=== PATIENT | male | born 1995 | race Caucasian/White ===

== ENCOUNTER 2017-08-09 02:15 | Emergency (ER) | payer OTHER ==
[2017-08-09] MEDS ORDERED: Lidocaine 2% PF * 5 ML VIAL ONE (02:38)
[2017-08-09] MEDS ORDERED: LORazepam INJ* 2 MG/ML 1 ML VIAL IM ONE (02:59)
[2017-08-09] MEDS ORDERED: LORazepam INJ* 2 MG/ML 1 ML VIAL ONE (03:00)
[2017-08-09 03:38] VITALS: BP 130/87
--- NOTE | 2017-08-09 03:58 | ED ---
Lorraine Maurer Edward, scribed for Emily Gan MD on 08/09/17 at 0302 . Laceration/Wound HPI - HPI Summary HPI Summary: 21 y/o male presents to the ED c/o L index finger laceration s/p cut with hunting knife at around 00:30 earlier tonight. Symptoms not aggravated or alleviated by anything. Pt denies SI. - History of Current Complaint Stated Complaint: LEFT FINGER LAC Time Seen by Provider: 08/09/17 02:26 Hx Obtained From: Patient Onset/Duration: Sudden Onset, Still Present Pain Intensity: 0 Associated Signs & Symptoms: Negative - Allergy/Home Medications Allergies/Adverse Reactions: Allergies Allergy/AdvReac Type Severity Reaction Status Date / Time No Known Allergies Allergy Verified 05/23/16 14:41 PMH/Surg Hx/FS Hx/Imm Hx Previously Healthy: No Endocrine/Hematology History: Denies: Hx Anticoagulant Therapy, Hx Blood Disorders, Hx Diabetes, Hx Thyroid Disease Cardiovascular History: Denies: Hx Hypertension Respiratory History: Denies: Hx Asthma, Hx Chronic Obstructive Pulmonary Disease (COPD) GI History: Denies: Hx Ulcer History: Denies: Hx Renal Disease Psychiatric History: Reports: Hx Attention Deficit Hyperactivity Disorder - Takes adderall Infectious Disease History: No Infectious Disease History: Denies: Hx Hepatitis, Hx Human Immunodeficiency Virus (HIV), Hx of Known/ Suspected MRSA, Traveled Outside the [place] in Last 30 Days - Family History Known Family History: Negative: Cardiac Disease, Diabetes - Social History Alcohol Use: Occasionally Substance Use Type: Reports: None Smoking Status (MU): Never Smoked Tobacco Review of Systems Constitutional: Negative Eyes: Negative ENT: Negative Cardiovascular: Negative Respiratory: Negative Gastrointestinal: Negative Genitourinary: Negative Musculoskeletal: Negative Positive: Other - Laceration @ L index Neurological: Negative Psychological: Normal All Other Systems Reviewed And Are Negative: Yes Physical Exam - Summary Physical Exam Summary: VITAL SIGNS: Reviewed. GENERAL: Patient is a well-developed and nourished male who is lying comfortable in the stretcher. Patient is not in any acute respiratory distress. HEAD AND FACE: No signs of trauma. No ecchymosis, hematomas or skull depressions. No sinus tenderness. EYES: PERRLA, EOMI x 2, No injected conjunctiva, no nystagmus. EARS: Hearing grossly intact. Ear canals and tympanic membranes are within normal limits. MOUTH: Oropharynx within normal limits. NECK: Supple, trachea is midline, no adenopathy, no JVD, no carotid bruit, no c- spine tenderness, neck with full ROM. CHEST: Symmetric, no tenderness at palpation LUNGS: Clear to auscultation bilaterally. No wheezing or crackles. CVS: Regular rate and rhythm, S1 and S2 present, no murmurs or gallops appreciated. ABDOMEN: Soft, non-tender. No signs of distention. No rebound no guarding, and no masses palpated. Bowel sounds are normal. EXTREMITIES: FROM in all major joints, no edema, no cyanosis or clubbing. NEURO: Alert and oriented x 3. No acute neurological deficits. Speech is normal and follows commands. SKIN: Dry and warm. 1 inch laceration over L index finger with mild bleeding. Neurovascular exam intact. Triage Information Reviewed: Yes Vital Signs On Initial Exam: Initial Vitals Temp Pulse Resp BP Pulse Ox 98.4 F 107 16 141/94 96 08/09/17 02:17 08/09/17 02:17 08/09/17 02:17 08/09/17 02:17 08/09/17 02:17 Vital Signs Reviewed: Yes - [place] Coma Scale Coma Scale Total: 15 Procedures - Laceration/Wound Repair 1 Location: upper extremity - L index Description: Linear Anesthesia: Digital, 2.0%, Lido Length, Depth and Shape: 1 inch, curvy, free flap Closure: Single Layer Suture Type: Nylon Number of Sutures: 4 Layer Closure?: Yes Sterile Dressing Applied?: Yes Diagnostics - Vital Signs Vital Signs Temp Pulse Resp BP Pulse Ox 08/09/17 02:17 98.4 F 107 16 141/94 96 - Laboratory Lab Statement: Any lab studies that have been ordered have been reviewed, and results considered in the medical decision making process. Re-Evaluation - Re-Evaluation 1 Re-Evaluation Time: 15:32 Comment: Discuss plan to d/c Laceration Repair Course/Dx - Course Assessment/Plan: 21 y/o male presents w/ laceration at L index finger. Lac repair - see procedure note. Pt will be d/c home. Stitches out in 10-14 days. - Clinical Impression Provider Diagnoses: Laceration of left index finger Discharge - Discharge Plan Condition: Stable Disposition: HOME Patient Education Materials: Care For Your Stitches (ED), Finger Laceration (ED ) [place]errals: [facility] [place] [facility] [place]] - 4 Days (PLEASE F/U IN 3-5 DAYS NEEDED) Additional Instructions: STITCHES OUT IN 10-14 DAYS. RETURN FOR WORSENING OF SYMPTOMS The documentation as recorded by the Lorraine rodriguez Edward accurately reflects the service I personally performed and the decisions made by , Emily Gan MD.
== END 2017-08-09 04:01 | disposition home or self-care (01) ==
LOC: ED 02:15
DX: S61.211A Laceration without foreign body of left index finger without damage to nail, initial encounter (principal); W26.0XXA Contact with knife, initial encounter; Y92.9 Unspecified place or not applicable
CPT/HCPCS: 12001; 96372; 99282; J2060

== ENCOUNTER 2017-09-12 13:54 | Emergency (ER) | payer OTHER ==
[2017-09-12] MEDS ORDERED: Ketorolac INJ* 60 MG/2 ML VIAL IM ONE (15:45)
--- NOTE | 2017-09-12 15:51 | ED ---
Lower Extremity - HPI Summary HPI Summary: 21M presents with right knee pain after falling yesterday. He states he slipped and fell and landed on his right knee. He states area is swollen. He has pain behind on the medial aspect of his knee. He states he feels a little unstable. He has not been able to ambulate due to the pain. States he feels better when it is slightly times and worse when it is straight. Has been taking aspirin for his pain. He states it feels swollen behind his kneecap. He denies any previous injury to the area. Denies any popping or locking. He denies any giving out of the knee. - History of Current Complaint Chief Complaint: EDExtremityLower Stated Complaint: FALL/RT KNEE PAIN Time Seen by Provider: 09/12/17 15:30 Pain Intensity: 5 - Allergies/Home Medications Allergies/Adverse Reactions: Allergies Allergy/AdvReac Type Severity Reaction Status Date / Time No Known Allergies Allergy Verified 09/12/17 14:11 PMH/Surg Hx/FS Hx/Imm Hx Endocrine/Hematology History: Denies: Hx Anticoagulant Therapy, Hx Blood Disorders, Hx Diabetes, Hx Thyroid Disease Cardiovascular History: Denies: Hx Hypertension Respiratory History: Denies: Hx Asthma, Hx Chronic Obstructive Pulmonary Disease (COPD) GI History: Denies: Hx Ulcer History: Denies: Hx Renal Disease Psychiatric History: Reports: Hx Attention Deficit Hyperactivity Disorder - Takes adderall - Immunization History Immunizations Up to Date: Yes Infectious Disease History: No Infectious Disease History: Denies: Hx Hepatitis, Hx Human Immunodeficiency Virus (HIV), Hx of Known/ Suspected MRSA, Traveled Outside the [place] in Last 30 Days - Family History Known Family History: Negative: Cardiac Disease, Diabetes - Social History Alcohol Use: Occasionally Substance Use Type: Reports: None Smoking Status (MU): Never Smoked Tobacco Review of Systems Negative: Fever Negative: Chest Pain Negative: Shortness Of Breath Positive: Myalgia - knee pain All Other Systems Reviewed And Are Negative: Yes Physical Exam Triage Information Reviewed: Yes Vital Signs On Initial Exam: Initial Vitals Temp Pulse Resp BP Pulse Ox 98.2 F 76 16 104/64 98 09/12/17 14:09 09/12/17 14:09 09/12/17 14:09 09/12/17 14:09 09/12/17 14:09 Vital Signs Reviewed: Yes Appearance: Positive: Well-Appearing Skin: Positive: Warm, Dry Head/Face: Positive: Normal Head/Face Inspection Eyes: Positive: Normal, Conjunctiva Clear Respiratory/Lung Sounds: Positive: Clear to Auscultation, Breath Sounds Present Cardiovascular: Positive: Normal, RRR Musculoskeletal: Positive: Limited @ - right knee, Edema Right - knee, Other - neg anterior drawer, pos ludwig, tenderness over medial aspect of knee, good pulses, sensation grossly intact Neurological: Positive: Normal Psychiatric: Positive: Normal Diagnostics - Vital Signs Vital Signs Temp Pulse Resp BP Pulse Ox 09/12/17 14:09 98.2 F 76 16 104/64 98 - Laboratory Lab Statement: Any lab studies that have been ordered have been reviewed, and results considered in the medical decision making process. - Radiology knee Xray Interpretation: No Acute Changes Radiology Interpretation Completed By: Radiologist Lower Extremity Course/Dx - Course Course Of Treatment: 21M presents with right knee pain after falling yesterday. He states he slipped and fell and landed on his right knee. He states area is swollen. He has pain behind on the medial aspect of his knee. He states he feels a little unstable. He has not been able to ambulate due to the pain. States he feels better when it is slightly times and worse when it is straight. Has been taking aspirin for his pain. He states it feels swollen behind his kneecap. He denies any previous injury to the area. Denies any popping or locking. He denies any giving out of the knee. On exam positive ballottement. Pain with Ludwig's. Tenderness over medial aspect of right knee. X-rays normal. Explained could be meniscal injury. Will give the immobilizer and have follow-up with orthopedic. Patient understands and agrees with plan. - Diagnoses Differential Diagnosis/HQI/PQRI: Positive: Fracture (Closed), Sprain, Strain, Other - meniscal, ligament Provider Diagnoses: Right knee injury Discharge - Discharge Plan Condition: Good Disposition: HOME Patient Education Materials: Knee Pain (ED) Referrals: No Primary Care Phys,NOPCP [Primary Care Provider] - Ana Hurtado MD [Medical Doctor] - Additional Instructions: Can use knee immbolizer as tolerated Ice, elevate Ibuprofen or tyenlol every 6 hours for pain Follow up with ortho Return to ED if develop or any new or worsening symptoms
--- NOTE | 2017-09-12 15:56 | RAD ---
Indication: Right knee pain. 4 views of the right knee demonstrates no fracture. No joint effusion is noted. No other bone or joint abnormality is identified. IMPRESSION: Unremarkable right knee.
[2017-09-12 17:01] VITALS: BP 112/62
== END 2017-09-12 17:01 | disposition home or self-care (01) ==
LOC: ED 13:54
DX: S89.91XA Unspecified injury of right lower leg, initial encounter (principal); W01.0XXA Fall on same level from slipping, tripping and stumbling without subsequent striking against object, initial encounter; Y92.9 Unspecified place or not applicable
CPT/HCPCS: 96372; 99282; J1885